=== PATIENT | male | born 1985 | race Caucasian/White ===

== ENCOUNTER 2016-11-28 09:56 | Emergency (ER) | payer OTHER ==
[2016-11-28 10:42] LABS: BASOPHIL 0.4 % (0-2); EOSINOPHIL 1.4 % (0-5); HCT 48.8 % (42.0-52.0); HGB 16.9 g/dl (13.2-18.0); LYMPHOCYTE 40.4 % (15-48); MCH 29.3 pg (25.0-31.0); MCHC 34.6 g/dL (32.0-36.0); MCV 84.6 fL (78.0-100.0); MONOCYTE 8.6 % (0-12); MPV 10.4 fL (6.0-9.5); NEUTROPHIL 49.2 % (41-80); PLT 220 K/uL (150-400); RBC 5.77 M/uL (4.70-6.00); RDW 13.4 % (11.5-14.0); WBC 7.9 K/uL (4.0-10.5)
[2016-11-28 10:57] LABS: POTASSIUM 3.9 mmol/L (3.5-5.1)
[2016-11-28 10:58] LABS: TROPONIN T < 0.010 ng/mL
== END 2016-11-28 13:18 | disposition home or self-care (01) ==
LOC: FER 09:56
PROVIDERS: Nurse Practitioner Family
DX: F41.1 Generalized anxiety disorder (principal); Z88.0 Allergy status to penicillin; Z88.2 Allergy status to sulfonamides
CPT/HCPCS: 36415; 80048; 82550; 82553; 84443; 84484; 85025; 93005